=== PATIENT | male | born 1960 | race Caucasian/White ===

== ENCOUNTER 2018-01-06 11:18 | Emergency (ER) | payer OTHER ==
[~2018-01-06] VITALS: Ht 182.9 cm; Wt 106.6 kg
[2018-01-06 11:43] VITALS: BP 163/104
--- NOTE | 2018-01-06 13:41 | ED UPPER/LOWER EXTREMITY COMPL ---
History of Present Illness General Chief Complaint: Hand or Wrist Injury Stated Complaint: PT CUT HIS RT THUMB Source: patient Exam Limitations: no limitations Vital Signs & Intake/Output Vital Signs & Intake/Output Vital Signs Date Time Temp Pulse Resp B/P B/P Pulse O2 O2 Flow FiO2 Mean Ox Delivery Rate 01/06 1143 97.2 71 18 163/104 96 Room Air Room Air Allergies Coded Allergies: No Known Allergies (01/06/18) Triage Note: PT CUT RIGHT THUMB OPEN ON TIN CAN TOP THIS MORNING. BLEEDING CONTROLLED AT THIS TIME BUT PT REPORTS IF HE DOESN'T KEEP PRESSURE ON IT THE BLEEDING IS HEAVY. Triage Nurses Notes Reviewed? yes Onset: Abrupt Duration: constant Timing: single episode today Severity: moderate Severity Numbers: 5 HPI: Patient is a 57-year-old male with past medical history of hypertension who presents emergency room with concerns of a laceration to the right thumb with an aluminum can in which bleeding was not controlled prior to arrival, tetanus is up-to-date patient is right arm dominant. (Teto Márquez) Past History Travel History Traveled to [place] past 21 day No Medical History Any Pertinent Medical History? see below for history Cardiovascular: hypertension Musculoskeletal: osteoarthritis Surgical History Surgical History: non-contributory Psychosocial History What is your primary language Pakistani Tobacco Use: Quit >30 days ago Family History Hx Contributory? No (Teto Márquez) Review of Systems Review of Systems Constitutional: Reports: no symptoms. EENTM: Reports: no symptoms. Respiratory: Reports: no symptoms. Cardiovascular: Reports: no symptoms. Gastrointestinal/Abdominal: Reports: no symptoms. Genitourinary: Reports: no symptoms. Musculoskeletal: Reports: see HPI. Skin: Reports: see HPI. Neurological/Psychological: Reports: no symptoms. Hematologic/Endocrine: Reports: see HPI, bleeding. Immunological: Reports: no symptoms. All Other Systems: Reviewed and Negative (Teto Márquez) Physical Exam Physical Exam General Appearance: no apparent distress, alert, comfortable Head: atraumatic Eyes: Bilateral: normal appearance. Ears, Nose, Throat: hearing grossly normal Neck: normal inspection Cardiovascular/Respiratory: no respiratory distress Peripheral Pulses: 2+ radial (L) Neurologic/Tendon: normal sensation, normal motor functions, normal tendon functions, responds to pain, no evidence tendon injury, no pulse deficit Skin: normal color, warm/dry Diagram Hands Front 1) Noted linear 1.2 cm superficial laceration full active range of motion with flexion extension abduction and adduction no exposed tendon no exposed bone mild active bleeding dermatomes intact capillary refill less than 2 seconds Full resisted range of motion noted no tendon deficit (Teto Márquez) Progress Differential Diagnosis: arterial insufficiency, compartment syndrome, contusion, dislocation, DVT, fracture, gout, septic arthritis, sprain, tendon injury Plan of Care: Current Medications Sig/John Start time Last Medication Dose Stop Time Status Admin Ibuprofen 600 MG ONCE ONE 01/06 1400 AC (Motrin) 01/06 1401 Lidocaine 20 ML ONCE ONE 01/06 1400 AC (Lidocaine 1%) 01/06 1401 No concerns of tendon deficit or fracture, Patient does admit to not taking his blood pressure medications today where I strongly advised patient to begin when he returns home (Teto Márquez) Departure Departure Disposition: HOME OR SELF CARE Condition: Stable Clinical Impression Primary Impression: Laceration of right thumb Secondary Impressions: Hypertension Referrals: Hussein RIZO,Dano Arriola (PCP/Family) Additional Instructions: As discussed begin [id number] ibuprofen for pain and inflammation, begin changing the bandages once a day with bacitracin application for fine 4 days and leave area open to improve healing. If you note signs of infection redness, pain, swelling, discharge return to the emergency room. Return to emergency room in 7-9 days for suture removal Departure Forms: Customer Survey General Discharge Information (Teto Márquez) PA/SUPPORT ANALYST Co-Sign Statement Statement: ED Attending supervision documentation- [] I saw and evaluated the patient. I have also reviewed all the pertinent lab results and diagnostic results. I agree with the findings and the plan of care as documented in the PA's/SUPPORT ANALYST's documentation. [X] I have reviewed the ED Record and agree with the PA's/SUPPORT ANALYST's documentation. [] Additions or exceptions (if any) to the PAs/SUPPORT ANALYST's note and plan are summarized below: [] (Herbie Singh DO) Procedures Laceration/Wound Repair Laceration/Wound Repair: Wound Location: upper extremity (RIGHT THUMB) Wound's Depth, Shape: linear, superficial Wound Length (cm): 1.2 Wound Explored: clean, no foreign body removed, irrigated extensively Irrigated w/ Saline (ccs): 360 Betadine Prep? Yes Anesthesia: 1% lidocaine Volume Anesthetic (ccs): 3 Wound Repaired With: sutures Suture Size/Type: 5:0 Number of Sutures: 3 Progress: Margins were revised for suture placement bacitracin bandage was applied bleeding was controlled prior to discharge and stopped (Teto Márquez)
== END 2018-01-06 14:31 ==
LOC: ERH 11:18
DX: S61.011A Laceration without foreign body of right thumb without damage to nail, initial encounter (principal); W26.8XXA Contact with other sharp object(s), not elsewhere classified, initial encounter; Y92.9 Unspecified place or not applicable; Y93.9 Activity, unspecified

== ENCOUNTER 2018-01-15 10:33 | Emergency (ER) | payer OTHER ==
[~2018-01-15] VITALS: Ht 182.9 cm; Wt 147.4 kg
[2018-01-15 12:14] VITALS: BP 120/77
--- NOTE | 2018-01-15 12:16 | ED UPPER/LOWER EXTREMITY COMPL ---
History of Present Illness General Chief Complaint: Suture Removal/Wound Recheck Stated Complaint: SUTURE REMOVAL Source: patient Exam Limitations: no limitations Vital Signs & Intake/Output Vital Signs & Intake/Output Vital Signs Date Time Temp Pulse Resp B/P B/P Pulse O2 O2 Flow FiO2 Mean Ox Delivery Rate 01/15 1214 98.4 72 18 120/77 98 Room Air 01/15 1040 99.4 73 20 124/80 97 Room Air Allergies Coded Allergies: No Known Allergies (01/06/18) Triage Note: SUTURE REMOVAL RIGHT THUMB Triage Nurses Notes Reviewed? yes Onset: Abrupt Duration: better Timing: recent history Severity: mild Severity Numbers: 1 HPI: Patient is a 57-year-old female who presents emergency room with concerns and check and suture removal which old records indicate that on January 06 patient suffered a laceration to his right thumb requiring #3 sutures. Patient does believe that 2 sutures were removed spontaneously denies any signs of infection or pain or fevers (Teto Márquez) Past History Travel History Traveled to [place] past 21 day No Medical History Any Pertinent Medical History? see below for history Cardiovascular: hypertension Musculoskeletal: osteoarthritis Surgical History Surgical History: non-contributory Psychosocial History What is your primary language Ukrainian Tobacco Use: Quit >30 days ago ETOH Use: occasional use Illicit Drug Use: denies illicit drug use Family History Hx Contributory? No (Teto Márquez) Review of Systems Review of Systems Constitutional: Reports: no symptoms. EENTM: Reports: no symptoms. Respiratory: Reports: no symptoms. Cardiovascular: Reports: no symptoms. Gastrointestinal/Abdominal: Reports: no symptoms. Genitourinary: Reports: no symptoms. Musculoskeletal: Reports: see HPI. Skin: Reports: see HPI. Neurological/Psychological: Reports: no symptoms. Hematologic/Endocrine: Reports: no symptoms. Immunological: Reports: no symptoms. All Other Systems: Reviewed and Negative (Teto Márquez) Physical Exam Physical Exam General Appearance: no apparent distress, alert, obese Head: atraumatic Eyes: Bilateral: normal appearance. Ears, Nose, Throat: hearing grossly normal Neck: normal inspection Cardiovascular/Respiratory: no respiratory distress Peripheral Pulses: 2+ radial (R) Neurologic/Tendon: normal sensation, normal motor functions, normal tendon functions, responds to pain, no evidence tendon injury, no pulse deficit Skin: intact, normal color, warm/dry Diagram Hands Front 1) Well healing 1 cm laceration with #1 intact sutures (Teto Márquez) Progress Differential Diagnosis: arterial insufficiency, compartment syndrome, contusion, dislocation, DVT, fracture, gout, septic arthritis, sprain, tendon injury Plan of Care: On examination patient had no signs of infection #1 suture was removed on focused examination of the finger there is no signs of indwelling sutures MOST likely the sutures fell out spontaneously I HAD A LONG DISCUSSION with patient that there is a possibility of retained foreign body and if symptoms worsen to return to the emergency room and he will comply (Teto Márquez) Departure Departure Disposition: HOME OR SELF CARE Condition: Stable Clinical Impression Primary Impression: Visit for wound check Secondary Impressions: Visit for suture removal Referrals: Hussein RIZO,Dano Arriola (PCP/Family) Additional Instructions: As discussed if YOU note signs of infection redness, pain, swelling, discharge or developing new concerning symptom return to the emergency room, continue to leave the wound dry and clean as possible Departure Forms: Customer Survey General Discharge Information (Teto Márquez) PA/HANDS AND DIAL INSPECTOR Co-Sign Statement Statement: ED Attending supervision documentation- I saw and evaluated the patient. I have also reviewed all the pertinent lab results and diagnostic results. I agree with the findings and the plan of care as documented in the PA's/HANDS AND DIAL INSPECTOR's documentation. x I have reviewed the ED Record and agree with the PA's/HANDS AND DIAL INSPECTOR's documentation. [] Additions or exceptions (if any) to the PAs/HANDS AND DIAL INSPECTOR's note and plan are summarized below: [] (Pratik RIZO,Beny)
== END 2018-01-15 12:31 ==
LOC: ERH 10:33
DX: Z48.02 Encounter for removal of sutures (principal)